=== PATIENT | female | born 1940 | race Asian ===

== ENCOUNTER 2017-09-15 07:43 | Observation (INO) | payer MEDICAID ==
[2017-09-15] MEDS: ISOSULFAN BLUE 1% 5 ML INJ SC
[~2017-09-15 07:43] MED LIST: CEFAZOLIN 2 GM/50 ML (PMX) 50 ML IVPB; SOD CHLORIDE 0.9% 1,000 ML IV
[2017-09-15] MEDS ORDERED: ISOSULFAN BLUE 1% 5 ML INJ SC (13:41)
[2017-09-15] MEDS ORDERED: PROPOFOL 20 ML (14:18)
[2017-09-15] MEDS ORDERED: ONDANSETRON 4 MG INJ (14:23)
[2017-09-15] MEDS ORDERED: DEXAMETHASONE 4 MG/ML 1 ML INJ (14:23)
[2017-09-15] MEDS ORDERED: ACETAMINOPHEN 1000MG/100ML IV 100 ML IVPB (16:30)
[2017-09-15] MEDS ORDERED: ONDANSETRON 4 MG INJ IV (16:30)
[2017-09-15] MEDS ORDERED: morphine 2 MG INJ IV (16:30)
[2017-09-15] MEDS ORDERED: HYDROmorphONE (0.2 MG/ML) 10ML SYG IV (17:14)
[2017-09-15] MEDS ORDERED: hydrALAzine 20 MG INJ IV (17:30)
[2017-09-15] MEDS ORDERED: METOCLOPRAMIDE 10 MG INJ (18:08)
[2017-09-15] MEDS: ONDANSETRON 4 MG INJ IV (18:52)
[2017-09-15] MEDS: HYDROmorphONE (0.2 MG/ML) 10ML SYG IV (18:53)
[2017-09-15] MEDS: METOCLOPRAMIDE 10 MG INJ IM (20:44)
[2017-09-15] MEDS: D5W-0.45 NACL + KCL 20 MEQ 1,000 ML IV (20:44)
[2017-09-16] MEDS: D5W-0.45 NACL + KCL 20 MEQ 1,000 ML IV ×2 (04:56→08:05)
[2017-09-16 05:23] LABS: ADD MAN DIFF? NO
[2017-09-16 05:29] LABS: BASOPHILS % 0.1 % (0.0-2.0); HEMATOCRIT 37.5 % (37.0-47.0); HEMOGLOBIN 12.5 g/dl (12.0-16.0); LYMPHOCYTES # 1.4 10^3/ul (0.8-2.9); MEAN CORPUSCULAR HEMOGLOBIN 32.2 pg (29.0-33.0); MEAN CORPUSCULAR HGB CONC 33.3 g/dl (32.0-37.0); MEAN CORPUSCULAR VOLUME 96.6 fl (82.0-101.0); MEAN PLATELET VOLUME 10.3 fl (7.4-10.4); MONOCYTE # 0.5 10^3/ul (0.3-0.9); MONOCYTES % 3.8 % (0.0-11.0); NEUTROPHILS % 84.6 % (39.0-77.0); PLATELET COUNT 162 10^3/UL (140-415); RED BLOOD COUNT 3.88 10^6/ul (4.20-5.40); RED CELL DISTRIBUTION WIDTH 11.9 % (11.5-14.5)
[2017-09-16 05:49] LABS: ANION GAP 19 (8-16); BLOOD UREA NITROGEN 11 mg/dl (7-20); CARBON DIOXIDE 22 mmol/L (21-31); CHLORIDE 104 mmol/L (97-110); CREATININE 0.69 mg/dl (0.44-1.00); GLUCOSE 224 mg/dl (70-220); POTASSIUM 4.6 mmol/L (3.5-5.1); SODIUM 140 mmol/L (135-144)
[2017-09-16] MEDS: METOPROLOL 50 MG TAB PO (09:00)
[2017-09-16] MEDS ORDERED: LOSARTAN 50 MG TAB PO (09:00)
[2017-09-16] MEDS: AMLODIPINE 5 MG TAB PO (09:01)
[2017-09-16] MEDS: CEFTRIAXONE 1 GM/50 ML (PMX) 50 ML IVPB (12:44)
[2017-09-16] MEDS: CEPASTAT LOZENGE MT (13:36)
[2017-09-16 13:52] LABS: UR CLARITY CLEAR (CLEAR); UR COLOR GREEN (YELLOW); UR GLUCOSE (Dip) 1+ mg/dL (NEGATIVE); UR SPECIFIC GRAVITY (Dip) 1.003 (1.003-1.030); UR TOTAL PROTEIN (Dip) NEGATIVE (NEGATIVE)
[2017-09-16 13:53] LABS: ADD UMIC YES; UR ASCORBIC ACID NEGATIVE (NEGATIVE); UR BACTERIA MANY /HPF (NONE SEEN); UR BILIRUBIN (Dip) NEGATIVE (NEGATIVE); UR BLOOD (Dip) 1+ mg/dL (NEGATIVE); UR KETONES (Dip) NEGATIVE (NEGATIVE); UR LEUKOCYTE ESTERASE (Dip) TRACE Leu/ul (NEGATIVE); UR NITRITE (Dip) NEGATIVE (NEGATIVE); UR RBC 2 /HPF (0-5); UR UROBILINOGEN (Dip) NEGATIVE (NEGATIVE); UR WBC 4 /HPF (0-5)
[2017-09-16] MEDS ORDERED: morphine LIQ (10 MG/5 ML) CUP PO (14:00)
== END 2017-09-16 14:50 | disposition home or self-care (01) ==
LOC: SDS 07:43 → REC 16:06 → MS1 18:30
DX: C50.912 Malignant neoplasm of unspecified site of left female breast (principal); Z17.0 Estrogen receptor positive status [ER+]; I10 Essential (primary) hypertension
CPT/HCPCS: 19301; 71045; 80048; 81001; 85025; 87086; 88307; 88331; 88342; 93005; 99217